=== PATIENT | male | born 1985 | race Caucasian/White ===

== ENCOUNTER 2017-02-21 22:17 | Emergency (ER) | payer SELFPAY ==
[2017-02-22 00:47] LABS: BASOPHIL % 0.6 % (0-2); PLATELET COUNT 248 x10^3mcL (130-400); RED CELL DISTRIBUTION WIDTH 13.2 % (11.5-14.5)
[2017-02-22 00:56] LABS: CALCIUM 8.7 mg/dL (8.5-10.1); CARBON DIOXIDE 27.7 mmol/L (21-32); CHLORIDE SERUM 102 mmol/L (98-107); GFR1 > 60 mL/min; GLUCOSE SERUM 94 mg/dL (74-106); POTASSIUM SERUM 3.4 mmol/L (3.5-5.1); SODIUM SERUM 138 mmol/L (136-145)
[2017-02-22 01:00] LABS: ALBUMIN 3.9 g/dL (3.4-5.0); ALKALINE PHOSPHATASE 63 U/L (46-116); ALT/SGPT 44 U/L (16-63); AST/SGOT 14 U/L (15-37); BILIRUBIN TOTAL 0.28 mg/dL (0.20-1.00); TOTAL PROTEIN, SERUM 7.7 g/dL (6.4-8.2)
[2017-02-22 01:39] VITALS: BP 142/86
== END 2017-02-22 01:39 | disposition home or self-care (01) ==
LOC: ED 22:17
PROVIDERS: Emergency Medicine
DX: R07.89 Other chest pain (principal); F15.90 Other stimulant use, unspecified, uncomplicated
CPT/HCPCS: 36415; Q0092